=== PATIENT | female | born 1940 ===

== ENCOUNTER 2018-03-21 14:29 | Inpatient (IN) | payer MEDICARE, OTHER ==
[~2018-03-21] VITALS: Ht 160 cm; Wt 71.0 kg
[2018-03-21] MEDS ORDERED: normal saline 1000ML IV soln IVB ONE (14:45)
[2018-03-21] MEDS ORDERED: acetaminophen 325mg tablet PO STA (14:54)
[2018-03-21 15:11] LABS: BASOPHILS % (AUTO) 0.4 % (0-1); EOSINOPHILS % (AUTO) 0.3 % (0-6); HEMATOCRIT 23.9 % (35.0-45.0); HEMOGLOBIN 7.7 g/dl (12.0-16.0); LYMPHOCYTES # (AUTO) 0.4 X10'3 (1.1-4.8); LYMPHOCYTES % (AUTO) 5.1 % (21-51); MEAN CORPUSCULAR HEMOGLOBIN 25.3 PG (27.0-31.0); MEAN CORPUSCULAR HGB CONC 32.4 % (33.0-36.5); MEAN CORPUSCULAR VOLUME 78.1 FL (78-98); MEAN PLATELET VOLUME 7.7 FL (7.4-10.4); MONOCYTES # (AUTO) 0.6 X10'3 (0-0.9); MONOCYTES % (AUTO) 8.2 % (2-12); PLATELET COUNT 333 X10'3 (140-440); RED BLOOD COUNT 3.06 X10'6 (4.20-5.60); RED CELL DISTRIBUTION WIDTH 18.2 % (11.5-14.5); WHITE BLOOD COUNT 6.9 X10'3 (4.5-11.0)
[2018-03-21 15:15] LABS: INR 1.2 INR; PROTHROMBIN TIME 12.6 SECONDS (9.0-12.0)
[2018-03-21 15:21] LABS: ALANINE AMINOTRANSFERASE 7 U/L (12-78); ALBUMIN 2.1 G/DL (3.4-5.0); ALBUMIN/GLOBULIN RATIO 0.4 (1.1-1.5); ALKALINE PHOSPHATASE 113 IU/L (46-116); ANION GAP 11 (8-16); ASPARTATE AMINO TRANSFERASE 15 U/L (10-37); BILIRUBIN,TOTAL 0.3 MG/DL (0.1-1.0); BLOOD UREA NITROGEN 16 MG/DL (7-18); BUN/CREATININE RATIO 24.2 (6.6-38.0); CALCIUM 7.9 MG/DL (8.5-10.1); CHLORIDE 103 MMOL/L (99-107); CREATINE KINASE 131 U/L (26-192); CREATININE 0.66 MG/DL (0.40-0.90); ETHANOL < 0.010 GM/DL (0.0-0.010); GLUCOSE 175 MG/DL (70-104); SODIUM 140 MMOL/L (135-145); TOTAL CARBON DIOXIDE 26.1 MMOL/L (24-32); TOTAL PROTEIN 7.1 G/DL (6.4-8.2); eGFR 87 ML/MIN
[2018-03-21] MEDS ORDERED: LORazepam 2 mg/ml vial IV ONE (15:35)
[2018-03-21] MEDS ORDERED: morphine 4 MG/ML inj SYRINge IV ONE (15:35)
[2018-03-21 15:36] LABS: POTASSIUM 2.9 MMOL/L (3.5-5.1)
[2018-03-21] MEDS ORDERED: potassium Cl oral solution 20 MEQ/15 ML PO ONE (16:00)
[2018-03-21 17:03] LABS: CLARITY,URINE SLIGHTLY CLOUDY (Clear); GLUCOSE, URINE NEGATIVE (Neg); KETONES,URINE 15 mg/dl (Neg); LEUKOCYTE ESTERASE ,URINE NEGATIVE (Neg); NITRITES, URINE POSITIVE (Neg); OCCULT BLOOD,URINE TRACE-LYSED (Neg); PH,URINE 5.5 (4.8-8.0); PROTEIN,URINE 30 mg/dl (Neg); UROBILINOGEN,URINE 0.2 E.U/dL (0.2-1.0)
[2018-03-21 17:05] LABS: COLOR,URINE DARK YELLOW (Yellow); UA COLLECTION TYPE FOLEY CATH
[2018-03-21] MEDS ORDERED: ondansetron/PF 4mg/2ml inj IV PRN (17:05)
[2018-03-21] MEDS ORDERED: mag hydrox/Alum hydrox/simeth 30ml oral suspension PO PRN (17:05)
[2018-03-21] MEDS ORDERED: morphine 4 MG/ML inj SYRINge IV PRN (17:05)
[2018-03-21] MEDS ORDERED: magnesium hydroxide 30ml (MOM) UD suspension PO PRN (17:05)
[2018-03-21 17:07] LABS: URINE AMPHETAMINE SCREEN NEGATIVE (Neg); URINE BARBITUATE SCREEN NEGATIVE (Neg); URINE BENZODIAZEPINES SCREEN NEGATIVE (Neg); URINE CANNABINOID SCREEN NEGATIVE (Neg); URINE COCAINE SCREEN NEGATIVE (Neg); URINE METHADONE SCREEN NEGATIVE (Neg); URINE OPIATE SCREEN POSITIVE (Neg); URINE PHENCYCLIDINE SCREEN NEGATIVE (Neg)
[2018-03-21 17:12] LABS: BACTERIA,URINE 4+ /HPF (Neg); MUCUS STRANDS MANY /LPF (Neg); RBC,URINE 0-2 /HPF (0-2); SQUAMOUS EPITHELIAL CELL,UR FEW /LPF (FEW)
[2018-03-21 17:13] LABS: WBC CLUMPS,URINE FEW /HPF (NEGATIVE)
[2018-03-21 19:00] VITALS: BP 114/53
[2018-03-21] MEDS: dextrose 5%-1/2 normal saline 1,000 ML IV SCH (19:30)
[2018-03-21] MEDS: clonazePAM 0.5mg tablet PO SCH (19:36)
[2018-03-21 20:00] VITALS: BP 105/51
[2018-03-21] MEDS: furosemide 20 MG/2 ML vial IV SCH (20:00)
[2018-03-21 21:05] LABS: POTASSIUM 3.4 MMOL/L (3.5-5.1)
[2018-03-21] MEDS ORDERED: CARB1TAB21 PO (21:56)
[2018-03-21] MEDS ORDERED: LEVO150T8 PO (22:06)
[2018-03-21] MEDS ORDERED: PRAM0.5T12 PO (22:06)
[2018-03-21 23:00] VITALS: BP 144/59
[2018-03-22] MEDS: acetaminophen 325mg tablet PO PRN ×2 (02:38→10:30)
[2018-03-22] MEDS: morphine 4 MG/ML inj SYRINge IV PRN ×2 (02:51→10:28)
[2018-03-22 03:00] VITALS: BP 134/70
[2018-03-22 03:23] LABS: BASOPHILS % (AUTO) 0.3 % (0-1); EOSINOPHILS % (AUTO) 0 % (0-6); HEMATOCRIT 25.2 % (35.0-45.0); HEMOGLOBIN 8.1 g/dl (12.0-16.0); LYMPHOCYTES # (AUTO) 0.7 X10'3 (1.1-4.8); MEAN CORPUSCULAR HEMOGLOBIN 25.9 PG (27.0-31.0); MEAN CORPUSCULAR HGB CONC 32.2 % (33.0-36.5); MEAN CORPUSCULAR VOLUME 80.3 FL (78-98); MEAN PLATELET VOLUME 8.3 FL (7.4-10.4); MONOCYTES # (AUTO) 0.6 X10'3 (0-0.9); MONOCYTES % (AUTO) 8.7 % (2-12); NEUTROPHILS # (AUTO) 5.7 X10'3 (1.8-7.7); PLATELET COUNT 338 X10'3 (140-440); RED BLOOD COUNT 3.14 X10'6 (4.20-5.60); RED CELL DISTRIBUTION WIDTH 18.6 % (11.5-14.5)
[2018-03-22 03:41] LABS: ALBUMIN 1.9 G/DL (3.4-5.0); ANION GAP 7 (8-16); BLOOD UREA NITROGEN 11 MG/DL (7-18); CALCIUM 7.6 MG/DL (8.5-10.1); CHLORIDE 105 MMOL/L (99-107); CREATININE 0.58 MG/DL (0.40-0.90); GLUCOSE 151 MG/DL (70-104); POTASSIUM 3.1 MMOL/L (3.5-5.1); SODIUM 139 MMOL/L (135-145); TOTAL CARBON DIOXIDE 26.6 MMOL/L (24-32); eGFR > 90 ML/MIN
[2018-03-22] MEDS: pramipexole 1mg tablet PO SCH ×2 (04:00)
[2018-03-22] MEDS: carbidopa/levodopa 10/100mg tab PO SCH ×6 (04:00→20:06)
[2018-03-22] MEDS: dextrose 5%-1/2 normal saline 1,000 ML IV SCH ×2 (04:30→13:05)
[2018-03-22] MEDS ORDERED: potassium Cl 40MEQ/NS 500ml 500 ML IV PRN ×2 (05:50)
[2018-03-22 06:00] VITALS: BP 112/48
[2018-03-22] MEDS: enoxaparin 40mg/0.4ml syringe SUBCUT SCH (07:58)
[2018-03-22] MEDS: pramipexole 0.25mg tablet PO SCH ×4 (08:00→20:06)
[2018-03-22] MEDS: furosemide 20 MG/2 ML vial IV SCH ×2 (08:40→20:07)
[2018-03-22] MEDS: clonazePAM 0.5mg tablet PO SCH ×2 (10:23→20:06)
[2018-03-22 11:00] VITALS: BP 105/49
[2018-03-22] MEDS ORDERED: DIAZ2TAB PO (11:12)
[2018-03-22] MEDS: ceFAZolin 1GM/D5W- ADD-VANTAGE 50 ML IV SCH ×3 (14:20→16:00)
[2018-03-22 15:00] VITALS: BP 105/50
[2018-03-22 19:00] VITALS: BP 94/41
[2018-03-22 23:00] VITALS: BP 98/52
[2018-03-23] MEDS: morphine 4 MG/ML inj SYRINge IV PRN (01:51)
[2018-03-23 03:00] VITALS: BP 108/45
[2018-03-23] MEDS: carbidopa/levodopa 10/100mg tab PO SCH ×7 (04:47→23:25)
[2018-03-23] MEDS: pramipexole 0.25mg tablet PO SCH ×7 (04:47→23:25)
[2018-03-23 05:55] LABS: BASOPHILS % (AUTO) 0.4 % (0-1); EOSINOPHILS # (AUTO) 0.1 X10'3 (0-0.9); EOSINOPHILS % (AUTO) 2.2 % (0-6); HEMATOCRIT 23.5 % (35.0-45.0); HEMOGLOBIN 7.5 g/dl (12.0-16.0); MEAN CORPUSCULAR HEMOGLOBIN 25.4 PG (27.0-31.0); MEAN CORPUSCULAR HGB CONC 32.1 % (33.0-36.5); MEAN CORPUSCULAR VOLUME 79.3 FL (78-98); MEAN PLATELET VOLUME 8.5 FL (7.4-10.4); MONOCYTES # (AUTO) 0.6 X10'3 (0-0.9); MONOCYTES % (AUTO) 10.1 % (2-12); NEUTROPHILS # (AUTO) 4.4 X10'3 (1.8-7.7); NEUTROPHILS % (AUTO) 71.3 % (42-75); PLATELET COUNT 282 X10'3 (140-440); RED BLOOD COUNT 2.96 X10'6 (4.20-5.60); RED CELL DISTRIBUTION WIDTH 18.9 % (11.5-14.5); WHITE BLOOD COUNT 6.2 X10'3 (4.5-11.0)
[2018-03-23 06:00] VITALS: BP 99/42
[2018-03-23 06:12] LABS: ALBUMIN 1.6 G/DL (3.4-5.0); ANION GAP 7 (8-16); BLOOD UREA NITROGEN 7 MG/DL (7-18); BUN/CREATININE RATIO 13.7 (6.6-38.0); CALCIUM 7.2 MG/DL (8.5-10.1); CHLORIDE 101 MMOL/L (99-107); CREATININE 0.51 MG/DL (0.40-0.90); GLUCOSE 120 MG/DL (70-104); MAGNESIUM 1.5 MG/DL (1.5-2.4); SODIUM 136 MMOL/L (135-145); TOTAL CARBON DIOXIDE 28.2 MMOL/L (24-32); eGFR > 90 ML/MIN
[2018-03-23] MEDS: enoxaparin 40mg/0.4ml syringe SUBCUT SCH ×2 (08:00→08:04)
[2018-03-23] MEDS: ceFAZolin 1GM/D5W- ADD-VANTAGE 50 ML IV SCH ×2 (08:02)
[2018-03-23] MEDS: clonazePAM 0.5mg tablet PO SCH ×2 (08:02→20:03)
[2018-03-23] MEDS: furosemide 20 MG/2 ML vial IV SCH ×2 (08:02→20:06)
[2018-03-23] MEDS: potassium Cl 20 mEq SR tablet PO PRN ×3 (08:03→16:11)
[2018-03-23] MEDS: levoTHYROXINE 75mcg tablet PO SCH (08:03)
[2018-03-23] MEDS ORDERED: magnesium Cl slow-release 64mg tablet PO PRN ×2 (09:00→09:05)
[2018-03-23] MEDS ORDERED: magnesium/D5W IVPB 100 ML IV PRN (09:05)
[2018-03-23] MEDS ORDERED: magnesium 4gm in 100ml NS 100 ML IV PRN (09:05)
[2018-03-23 11:00] VITALS: BP 103/45
[2018-03-23] MEDS: HYDROcodone/acetaminophen 5mg/325mg tablet PO PRN ×3 (11:05→21:11)
[2018-03-23] MEDS ORDERED: vancomycin/NS 1 GM ADD-VANTAGE 250 ML IV SCH (11:15)
[2018-03-23] MEDS: vancomycin/NS 1 GM ADD-VANTAGE 250 ML IV SCH (12:47)
[2018-03-23 15:00] VITALS: BP 103/48
[2018-03-23 19:00] VITALS: BP 125/51
[2018-03-23] MEDS: lactobacillus rhamnosus 10,000 MMU CELLS/CAPSULE PO SCH (19:59)
[2018-03-23 23:00] VITALS: BP 120/53
[2018-03-24] MEDS: vancomycin/NS 1 GM ADD-VANTAGE 250 ML IV SCH ×2 (01:19→12:30)
[2018-03-24 03:00] VITALS: BP 114/49
[2018-03-24] MEDS: pramipexole 0.25mg tablet PO SCH ×5 (04:28→19:34)
[2018-03-24] MEDS: carbidopa/levodopa 10/100mg tab PO SCH ×5 (04:33→19:35)
[2018-03-24 05:04] LABS: BASOPHILS % (AUTO) 0.2 % (0-1); EOSINOPHILS # (AUTO) 0.4 X10'3 (0-0.9); EOSINOPHILS % (AUTO) 8.2 % (0-6); HEMATOCRIT 25.3 % (35.0-45.0); HEMOGLOBIN 8.1 g/dl (12.0-16.0); LYMPHOCYTES # (AUTO) 0.9 X10'3 (1.1-4.8); LYMPHOCYTES % (AUTO) 17.5 % (21-51); MEAN CORPUSCULAR HEMOGLOBIN 25.5 PG (27.0-31.0); MEAN CORPUSCULAR HGB CONC 32.1 % (33.0-36.5); MEAN CORPUSCULAR VOLUME 79.6 FL (78-98); MONOCYTES # (AUTO) 0.6 X10'3 (0-0.9); MONOCYTES % (AUTO) 11.7 % (2-12); NEUTROPHILS # (AUTO) 3.3 X10'3 (1.8-7.7); NEUTROPHILS % (AUTO) 62.4 % (42-75); PLATELET COUNT 321 X10'3 (140-440); RED BLOOD COUNT 3.19 X10'6 (4.20-5.60); RED CELL DISTRIBUTION WIDTH 18.2 % (11.5-14.5); WHITE BLOOD COUNT 5.4 X10'3 (4.5-11.0)
[2018-03-24 05:24] LABS: ALBUMIN 1.6 G/DL (3.4-5.0); BLOOD UREA NITROGEN 5 MG/DL (7-18); BUN/CREATININE RATIO 10.6 (6.6-38.0); CALCIUM 7.9 MG/DL (8.5-10.1); CHLORIDE 99 MMOL/L (99-107); CREATININE 0.47 MG/DL (0.40-0.90); GLUCOSE 122 MG/DL (70-104); MAGNESIUM 1.5 MG/DL (1.5-2.4); POTASSIUM 3.4 MMOL/L (3.5-5.1); eGFR > 90 ML/MIN
[2018-03-24 05:49] LABS: ANION GAP 5 (8-16); SODIUM 135 MMOL/L (135-145)
[2018-03-24 07:07] VITALS: BP 113/54
[2018-03-24] MEDS: clonazePAM 0.5mg tablet PO SCH ×2 (08:08→19:35)
[2018-03-24] MEDS: levoTHYROXINE 75mcg tablet PO SCH (08:10)
[2018-03-24] MEDS: lactobacillus rhamnosus 10,000 MMU CELLS/CAPSULE PO SCH ×2 (08:10→19:35)
[2018-03-24] MEDS: potassium Cl 20 mEq SR tablet PO PRN ×4 (08:11→19:54)
[2018-03-24] MEDS: furosemide 20 MG/2 ML vial IV SCH (08:13)
[2018-03-24] MEDS: enoxaparin 40mg/0.4ml syringe SUBCUT SCH (08:14)
[2018-03-24] MEDS: HYDROcodone/acetaminophen 5mg/325mg tablet PO PRN ×2 (10:22→19:56)
[2018-03-24 11:00] VITALS: BP 100/47
[2018-03-24 16:47] VITALS: BP 111/53
[2018-03-24 19:00] VITALS: BP 108/44
[2018-03-25] MEDS ORDERED: VANCOMYCIN LEVEL IV ONE (00:30)
[2018-03-25] MEDS: carbidopa/levodopa 10/100mg tab PO SCH ×4 (00:39→12:25)
[2018-03-25] MEDS: pramipexole 0.25mg tablet PO SCH ×4 (00:39→12:25)
[2018-03-25] MEDS: vancomycin/NS 1 GM ADD-VANTAGE 250 ML IV SCH (01:33)
[2018-03-25 01:48] LABS: ALBUMIN 1.7 G/DL (3.4-5.0); ANION GAP 6 (8-16); BLOOD UREA NITROGEN 6 MG/DL (7-18); BUN/CREATININE RATIO 9.1 (6.6-38.0); CALCIUM 8.3 MG/DL (8.5-10.1); CHLORIDE 100 MMOL/L (99-107); CREATININE 0.66 MG/DL (0.40-0.90); GLUCOSE 152 MG/DL (70-104); MAGNESIUM 1.6 MG/DL (1.5-2.4); SODIUM 135 MMOL/L (135-145); eGFR 87 ML/MIN
[2018-03-25 02:00] VITALS: BP 112/45
[2018-03-25 02:12] LABS: BASOPHILS % (AUTO) 0.7 % (0-1); EOSINOPHILS # (AUTO) 0.7 X10'3 (0-0.9); EOSINOPHILS % (AUTO) 11.1 % (0-6); HEMATOCRIT 27.6 % (35.0-45.0); HEMOGLOBIN 8.7 g/dl (12.0-16.0); MEAN CORPUSCULAR HEMOGLOBIN 25.6 PG (27.0-31.0); MEAN CORPUSCULAR HGB CONC 31.5 % (33.0-36.5); MEAN CORPUSCULAR VOLUME 81.2 FL (78-98); MEAN PLATELET VOLUME 8.8 FL (7.4-10.4); MONOCYTES # (AUTO) 0.9 X10'3 (0-0.9); MONOCYTES % (AUTO) 14.4 % (2-12); NEUTROPHILS # (AUTO) 3.5 X10'3 (1.8-7.7); NEUTROPHILS % (AUTO) 57.8 % (42-75); PLATELET COUNT 356 X10'3 (140-440); RED CELL DISTRIBUTION WIDTH 16.8 % (11.5-14.5); WHITE BLOOD COUNT 6.1 X10'3 (4.5-11.0)
[2018-03-25] MEDS: HYDROcodone/acetaminophen 5mg/325mg tablet PO PRN ×2 (04:58→13:10)
[2018-03-25 07:15] VITALS: BP 113/50
[2018-03-25] MEDS ORDERED: prednisone 10mg tablet PO SCH (08:30)
[2018-03-25] MEDS: enoxaparin 40mg/0.4ml syringe SUBCUT SCH (08:56)
[2018-03-25] MEDS: clonazePAM 0.5mg tablet PO SCH (08:57)
[2018-03-25] MEDS: lactobacillus rhamnosus 10,000 MMU CELLS/CAPSULE PO SCH (08:57)
[2018-03-25] MEDS: levoTHYROXINE 75mcg tablet PO SCH (08:59)
[2018-03-25 11:00] VITALS: BP 136/63
[2018-03-27] MEDS ORDERED: VANCOMYCIN LEVEL IV ONE (00:30)
== END 2018-03-25 13:25 | disposition home or self-care (01) | DRG 922 ==
LOC: ER 14:30 → EDBD 14:30 → ED HOLD 17:05 → PCU 3S 18:20
PROVIDERS: ADMIT Internal Medicine; ATTEND Family Medicine
DX: T67.5XXA Heat exhaustion, unspecified, initial encounter (principal); G93.41 Metabolic encephalopathy; E43 Unspecified severe protein-calorie malnutrition; L12.0 Bullous pemphigoid; L03.116 Cellulitis of left lower limb; N39.0 Urinary tract infection, site not specified; E87.6 Hypokalemia; D64.9 Anemia, unspecified; E03.9 Hypothyroidism, unspecified; B96.1 Klebsiella pneumoniae [K. pneumoniae] as the cause of diseases classified elsewhere; F41.9 Anxiety disorder, unspecified; G89.4 Chronic pain syndrome; I50.9 Heart failure, unspecified; Z53.20 Procedure and treatment not carried out because of patient's decision for unspecified reasons; Z79.899 Other long term (current) drug therapy; X30.XXXA Exposure to excessive natural heat, initial encounter; Z68.27 Body mass index [BMI] 27.0-27.9, adult; Y93.89 Activity, other specified; Y92.89 Other specified places as the place of occurrence of the external cause; Y99.8 Other external cause status
CPT/HCPCS: 36415; 71045; 80048; 80053; 80202; 80305; 80320; 81001; 82550; 83605; 83735; 83880; 84132; 84145; 84484; 85025; 85610; 86885; 86900; 86901; 87040; 87070; 87077; 87088; 87186; 93005; 93306; 96361; 96374; 96375; 97116; 97161; 97530; 99291; A6212; A6213; A6253; A6446; A6449; A9270; C1758; J0690; J1650; J1940; J2060; J2270; J3370; J3480; J7030; J7512